=== PATIENT | female | born 1990 | race Caucasian/White ===

== ENCOUNTER 2019-01-27 23:02 | Emergency (ER) | payer MEDICAID ==
[~2019-01-27] VITALS: Ht 154.9 cm; Wt 68.2 kg
[~2019-01-27 23:02] MED LIST: ACET500C5 PO; LORA-441 PO
[2019-01-27 23:03] VITALS: Ht 154.9 cm; Wt 68.2 kg
[2019-01-27] MEDS ORDERED: KETOROLAC 30 MG INJ IM STA (23:44)
[2019-01-28] MEDS ORDERED: LORAZEPAM 1 MG TAB PO ONE
--- NOTE | 2019-01-28 00:34 | ERD ---
ER Documentation Chief Complaint Chief Complaint NEWMAN WITH ANXIETY; NO FACIAL DRROP, NO WEAKNESS X1HR HPI 28-year-old female presents with bitemporal headache, abdominal pain, dizziness, starting today. She denies any arguments or inciting events. [place] the beach. Denies any chest pain or shortness of breath. She feels shaky as well. ROS All systems reviewed and are negative except as per history of present illness. Medications Home Meds Active Scripts Acetaminophen* (Tylophen*) 500 Mg Capsule, 1 CAP PO Q6H PRN for PAIN AND OR ELEVATED TEMP, #15 CAP Prov:NEELA ALVARADO MD 01/28/19 Lorazepam* (Ativan*) 0.5 Mg Tablet, 0.5 MG PO Q8, #5 TAB Prov:NEELA ALVARADO MD 01/28/19 PMhx/Soc Medical and Surgical Hx: pt denies Medical Hx, pt denies Surgical Hx Hx Miscellaneous Medical Probl: No Hx Alcohol Use: No Hx Substance Use: No Hx Tobacco Use: No Smoking Status: Never smoker FmHx Family History: No diabetes, No coronary disease, No other Physical Exam Vitals Vital Signs Date Temp Pulse Resp B/P (MAP) Pulse Ox O2 O2 Flow FiO2 Time Delivery Rate 01/27/19 97.6 96 19 151/84 97 23:03 (106) Physical Exam Const: No acute distress. Anxious, crying. Head: Atraumatic Eyes: Normal Conjunctiva ENT: Normal External Ears, Nose and Mouth. Neck: Full range of motion. No meningismus. Resp: Clear to auscultation bilaterally Cardio: Regular rate and rhythm, no murmurs Abd: Soft, non tender, non distended. Normal bowel sounds Skin: No petechiae or rashes Back: No midline or flank tenderness Ext: No cyanosis, or edema Neur: Awake and alert Psych: Normal Mood and Affect Results 24 hrs Laboratory Tests Test 01/28/19 00:15 01/28/19 00:17 POC Beta HCG, Qualitative NEGATIVE Bedside Urine pH (LAB) 5.5 Bedside Urine Protein (LAB) Negative Bedside Urine Glucose (UA) Negative Bedside Urine Ketones (LAB) Negative Bedside Urine Blood Negative Bedside Urine Nitrite (LAB) Negative Bedside Urine Leukocyte Esterase (L Negative Current Medications Medications Dose Sig/Jimmy Start Time Status Last (Trade) Ordered Route PRN Stop Time Admin Dose Reason Admin Lorazepam 1 mg ONCE ONCE 01/28/19 DC 01/28/19 (Ativan) PO 00:00 01/28/19 00:17 00:01 Ketorolac 30 mg ONCE STAT 01/27/19 DC 01/28/19 Tromethamine IM 23:44 01/27/19 00:17 (Toradol) 23:45 Procedures/MDM Patient presents with sudden onset of dizziness, headache, body aches, abdominal pain, shakiness. No history of hypoxemia, chest pain. Patient has no signs of neurologic deficits, EKG: Rate/Rhythm: Normal Sinus Rhythm. Rate equals 76 QRS, ST, T-waves: No changes consistent w/ acute ischemia Impression: No evidence of ischemia or arrhythmia Negative hCG negative. Patient given Ativan and Toradol 30 mg IM. Patient symptoms multiple physical symptoms but is well-appearing after observation treatment. Multitude of symptoms suggest possible panic attack or anxiety. There is no current signs or symptoms which are concerning. Patient is otherwise well-appearing. We will treat with a short course of Ativan, Tylenol, further observation at home and return precautions. Serial exam shows that patient feeling better after observation treatment. The patient was stable with no new complaints during the ER course. Clinically, there is no current evidence to suggest meningitis, sepsis, acute abdomen, pneumonia, stroke, acute coronary syndrome, pulmonary embolism, aortic dissection or any other emergent condition appearing to require further evaluation or hospitalization. Patient counseled regarding my diagnostic impression and care plan. Prior to discharge all questions answered. Pt agrees with treatment plan and understands strict return precautions. Pt is instructed to follow up with primary care provider within 24-48 hours. Precautionary instructions provided including instructions to return to the ER if not improving or for any worsening or changing symptoms or concerns. Disclaimer: Inadvertent spelling and grammatical errors are likely due to EHR/dictation software use and do not reflect on the overall quality of patient care. Also, please note that the electronic time recorded on this note does not necessarily reflect the actual time of the patient encounter. Departure Diagnosis: Primary Impression: Anxiety Additional Impression: Headache Headache type: unspecified Headache chronicity pattern: acute headache Intractability: not intractable Qualified Codes: R51 - Headache Condition: Stable Patient Instructions: Anxiety Reaction, Headache, Unspecified [facility] Usted se newman hecho un examen mdico de control que le indica que no est en barbara condicin que requiera tratamiento urgente en el Departamento de Emergencia. Un estudio ms profundo y el tratamiento de townsend condicin pueden esperar sin ningn riesgo hasta que usted sea atendida/o en el consultorio de townsend mdico o barbara clnica. Es responsabilidad suya arreglar barbara olinda para el seguimiento del lizzeth. MANEJO DE CONDICIONES NO URGENTES EN EL FUTURO 1) Si usted tiene un mdico de atencin primaria: Usted debera llamar a townsend mdico de atencin primaria antes de venir al departamento de emergencia. Despus de las horas de consultorio, townsend doctor o townsend asociado/a est disponible por telfono. El mdico o enfermero de nichole en el servicio telefnico puede asesorarle por graham medio para atender el problema, o lizzeth contrario se puede programar barbara olinda. 2) Si usted no tiene un mdico de atencin primaria: Llame al mdico o clnica de referencia que aparece abajo mishel las horas de consultorio para hacer barbara olinda para que le vean. CLINICAS: [facility] [phone] [facility] [phone] [facility] [phone] [facility] [phone] [id number] [facility] [address] [facility] [phone] [id number] [facility]. [phone] [address] Additional Instructions: Examines normal hoy. Cheque otro vez con townsend doctor primario en el proximo palmer or regresa para mas o nueva simptomas. NEELA ALVARADO MD Jan 28, 2019 00:34
[2019-01-28 01:38] VITALS: BP 128/72; PULSE 90; RESP 18
== END 2019-01-28 01:38 | disposition home or self-care (01) ==
LOC: FTE 23:02
DX: F41.9 Anxiety disorder, unspecified (principal); R10.9 Unspecified abdominal pain
CPT/HCPCS: 81003; 81025; 93005; 96372; J1885; Z7502; Z7610